=== PATIENT | male | born 1985 | race Two or more races ===

== ENCOUNTER 2024-11-14 15:03 | Emergency (ER) | payer OTHER ==
[~2024-11-14] VITALS: Ht 180.3 cm; Wt 80.3 kg
[2024-11-14 16:28] LABS: BASOPHILS # (AUTO) 0.1 K/uL (0.0-0.2); BASOPHILS % (AUTO) 0.6 % (0.0-2.0); EOSINOPHILS # (AUTO) 0.2 K/uL (0.0-0.7); EOSINOPHILS % (AUTO) 1.9 % (0.0-6.0); HEMATOCRIT 39 % (39-51); HEMOGLOBIN 13.4 g/dL (13.5-17.5); LYMPHOCYTES # (AUTO) 1.4 K/uL (0.8-4.8); MEAN CORPUSCULAR HEMOGLOBIN 33 PG (26.0-33.0); MEAN CORPUSCULAR HGB CONC 35 g/dl (31.0-36.0); MEAN CORPUSCULAR VOLUME 94 fL (80-96); MONOCYTES # (AUTO) 0.7 K/uL (0.1-1.30); MONOCYTES % (AUTO) 8.2 % (2.0-12.0); NEUTROPHILS # (AUTO) 5.7 K/uL (1.8-8.9); NEUTROPHILS % (AUTO) 71.3 % (43.0-81.0); PLATELET COUNT (AUTO) 180 K/uL (150-450); RED BLOOD CELL COUNT(AUTO) 4.09 MIL/uL (4.5-6.0)
[2024-11-14 16:37] LABS: ERYTHROCYTE SEDIMENTATION RATE 18 MM/HR (0-15)
[2024-11-14 16:40] LABS: CALCIUM, SERUM 9.7 mg/dL (8.5-10.1); CREATININE 0.8 mg/dL (0.6-1.3)
[2024-11-14] MEDS ORDERED: COLCHICINE 0.6 MG TABLET ONE ×2 (16:40→18:31)
[2024-11-14] MEDS: COLCHICINE 0.6 MG TABLET PO ONE ×2 (16:41→18:31)
[2024-11-14 16:43] LABS: C-REACTIVE PROTEIN 7.63 mg/dL (0.0-0.30); URIC ACID 8.1 mg/dL (2.6-7.2)
[2024-11-14] MEDS ORDERED: KETOROLAC TROMETHAMINE 15 MG/ML VIAL IM ONE (17:00)
[2024-11-14] MEDS ORDERED: COLC0.6T67 PO (18:19)
[2024-11-14 18:46] VITALS: BP 123/85; TEMP 98.3; O2SAT 98
== END 2024-11-14 18:46 | disposition home or self-care (01) ==
LOC: ER 15:19
DX: M10.9 Gout, unspecified (principal); M79.605 Pain in left leg; M25.472 Effusion, left ankle; M70.872 Other soft tissue disorders related to use, overuse and pressure, left ankle and foot; Y93.89 Activity, other specified
CPT/HCPCS: 36415; 73610-TC; 80048-TC; 84550-TC; 85025-TC; 85652-TC; 86140-TC; 93971-TC